=== PATIENT | male | born 1980 | race African-American/Black ===

== ENCOUNTER 2017-07-14 08:28 | Emergency (ER) | payer MEDICAID, OTHER ==
[~2017-07-14] VITALS: Ht 172.7 cm; Wt 95.2 kg
[2017-07-14 08:34] VITALS: Ht 172.7 cm; Wt 95.2 kg
[2017-07-14 11:55] VITALS: BP 126/86
== END 2017-07-14 11:55 | disposition home or self-care (01) ==
LOC: ED 08:28
DX: G89.29 Other chronic pain (principal); R10.13 Epigastric pain; R11.10 Vomiting, unspecified
CPT/HCPCS: J1630; J2060